=== PATIENT | female | born 1980 | race Caucasian/White ===

== ENCOUNTER 2022-07-21 16:39 | Outpatient (CLI) | payer MEDICAID | END 2022-07-21 23:59 | disposition left against medical advice (07) | LOC: EMS 16:39 | DX: S09.90XA Unspecified injury of head, initial encounter (principal); Y04.2XXA Assault by strike against or bumped into by another person, initial encounter; Y92.029 Unspecified place in mobile home as the place of occurrence of the external cause ==

== ENCOUNTER 2025-04-14 16:49 | Observation (INO) ==
[2025-04-14 17:22] LABS: HCT - HEMATOCRIT 35.7 % (37.0-47.0); HGB - HEMOGLOBIN 11.7 g/dL (12.0-16.0); MEAN PLATELET VOLUME 9.3 fL (7.9-10.8); PLT - PLATELET COUNT 263 10^3/uL (130-450); RED CELL DISTRIBUTION WIDTH 14.5 % (12.0-15.0)
[2025-04-14 17:27] LABS: ABNORMAL LYMPHS % (MANUAL) 0 %; BASOPHILS # (MANUAL) 0.0 10^3/uL (0-0.1)
--- NOTE | 2025-04-14 17:33 | ED Physician Documentation ---
PD HPI ABD PAIN Stated complaint Stated Complaint: ABD/BACK PX, CONFUSION Chief complaint Chief Complaint: Abd Pain Additional information Additional information: 44-year-old female with history of pyelonephritis renal calculi and meth dependence presents to the emergency department for right flank pain and UTI symptoms that started on Monday. Patient says with her history of pyelonephritis and kidney stones in the past this feels very similar to previous episodes. She has been having fevers and chills at home unsure how high her fever has been but she says very high. Mostly pain is to her right flank region with UTI symptoms such as dysuria, urinary urgency and frequency but now pain is radiating throughout her entire lower back. She endorses in nausea no vomiting. Meds/Allgy Home Medications Ambulatory Orders Medication Instructions Recorded Confirmed hydrocodone 5 mg-acetaminophen 325 1 - 2 ea PO Q6H PRN Pain #15 tabs 04/22/13 01/23/25 mg tablet Held on 01/23/25. Instructions: Therapy Completed prednisone 20 mg tablet 40 mg (2 x 20 mg) PO DAILY 5 days 04/22/13 01/23/25 Held on 01/23/25. Instructions: Therapy Completed ferrous sulfate 325 mg (65 mg 325 mg PO QDAY 01/23/25 01/28/25 iron) tablet lisinopril 10 mg tablet 10 mg PO QDAY #90 tabs 01/2301/28/25 Allergies Allergies Allergy/AdvReac Type Severity Reaction Status Date / Time aspirin Allergy Severe Anaphylaxis Verified 04/14/25 17:10 bee venom protein (honey bee) Allergy Severe Anaphylaxis Verified 04/14/25 17:10 morphine Allergy Severe Anaphylaxis Verified 04/14/25 17:10 Penicillins Allergy Severe Anaphylaxis Verified 04/14/25 17:10 Sulfa (Sulfonamide Allergy Severe Anaphylaxis Verified 04/14/25 17:10 Antibiotics) cinnamon Allergy Intermediate Hives Verified 04/14/25 17:10 mark Allergy Intermediate Hives Verified 04/14/25 17:10 strawberry Allergy Intermediate Hives Verified 04/14/25 17:10 Vinegar Allergy Intermediate Hives Verified 04/14/25 17:10 PFSH Active Problems All Active Problems (Updated 04/14/25 @ 19:54 by REE Iglesias) Methamphetamine use (Acute) Sepsis (Acute) Pyelonephritis (Acute) Essential hypertension (Acute) Cellulitis of left hand (Acute) Puncture wound of left hand (Acute) Medical History Medical History (Updated 04/14/25 @ 19:54 by REE Iglesias) No pertinent past medical history Social History Social History Smoking Status: Former smoker If you are a former smoker, when did you quit? (Date/Year): 2022 Do you feel safe in your home environment?: Yes History of physical, verbal, emotional, or financial abuse?: No Frequency: Occasional Exam Exam Vital Signs: Vital Signs x48h Pulse Resp BP Pulse Ox 04/14/25 18:51 98 23 133/86 H 96 04/14/25 17:06 110 H 18 171/115 H 97 Constitutional abnormal general appearance (disheveled), (chronically ill) and (lethargic), no apparent distress, average body habitus, no limitations and alert HENMT normocephalic and head/scalp atraumatic Eyes PERRL Chest inspection of chest normal Respiratory breath sounds equal bilaterally and normal respiratory effort Cardiovascular normal heart rate noted Gastrointestinal abdomen normal to inspection, abdomen soft to palpation, nontender to palpation, nondistended and no masses Genitourinary right CVA tenderness Extremities normal to inspection Skin skin color normal Results Vitals Vitals: Vital Signs - 24 hr 04/14/25 17:06 04/14/25 18:51 Temperature Source Temporal Artery Scan Pulse Rate 110 H 98 Respiratory Rate 18 23 Blood Pressure 171/115 H 133/86 H O2 Saturation 97 96 O2 Source Room air Pain Intensity 10 Oxygen O2 Source Room air Labs Labs: Laboratory Tests 04/14/25 04/14/25 04/14/25 17:16 17:16 17:38 WBC 24.3 H RBC 4.18 L Hgb 11.7 L Hct 35.7 L MCV 85.4 MCH 28.0 MCHC 32.8 RDW 14.5 Plt Count 263 MPV 9.3 Neut # (Auto) Not Reportable Lymph # (Auto) Not Reportable [place] # (Auto) Not Reportable Eos # (Auto) Not Reportable Baso # (Auto) Not Reportable Absolute Nucleated RBC Not Reportable Total Counted 100 Band Neuts % (Manual) 3 Abnorm Lymph % (Manual) 0 Metamyelocytes % 1 H Nucleated RBC % Not Reportable Neutrophils # (Manual) 20.9 H Lymphocytes # (Manual) 1.5 Monocytes # (Manual) 1.5 H Eosinophils # (Manual) 0.2 Basophils # (Manual) 0.0 Differential Comment MANUAL DIFFERENTIAL Platelet Estimate NORMAL (130-450,000) Platelet Morphology NORMAL APPEARANCE RBC Morph Micro Appear 1+ ANISOCYTOSIS 1+ POLYCHROMASIA VBG pH VBG pCO2 VBG pO2 VBG HCO3 VBG Total CO2 VBG O2 Saturation VBG Base Excess Sodium 131 L Potassium 3.5 Chloride 100 L Carbon Dioxide 24 Anion Gap 7.0 BUN 19 Creatinine 1.1 Estimated GFR (MDRD) 54 L Glucose 163 H Lactic Acid Calcium 8.6 Total Bilirubin 0.5 AST 14 ALT 17 Alkaline Phosphatase 101 Total Protein 7.1 Albumin 3.4 Globulin 3.7 Albumin/Globulin Ratio 0.9 L Lipase 39 Urine Color Dark yellow Urine Clarity Cloudy Urine pH 6.0 Ur Specific [place] 1.020 Urine Protein >=300 H Urine Glucose (UA) 500 H Urine Ketones Negative Urine Occult Blood Large Urine Nitrite Positive Urine Bilirubin Negative Urine Urobilinogen 2 H Ur Leukocyte Esterase Moderate Urine RBC 11-25 H Urine WBC 11-25 H Urine WBC Clumps PRESENT Ur Squamous Epith Cells RARE Squamous Urine Bacteria Many H Ur Microscopic Review INDICATED Urine Culture Comments INDICATED Urine HCG, Qual NEGATIVE Serum Ketones 04/14/25 04/14/25 18:02 18:39 WBC RBC Hgb Hct MCV MCH MCHC RDW Plt Count MPV Neut # (Auto) Lymph # (Auto) [place] # (Auto) Eos # (Auto) Baso # (Auto) Absolute Nucleated RBC Total Counted Band Neuts % (Manual) Abnorm Lymph % (Manual) Metamyelocytes % Nucleated RBC % Neutrophils # (Manual) Lymphocytes # (Manual) Monocytes # (Manual) Eosinophils # (Manual) Basophils # (Manual) Differential Comment Platelet Estimate Platelet Morphology RBC Morph Micro Appear VBG pH 7.443 H VBG pCO2 35.1 L VBG pO2 40.6 VBG HCO3 24.3 VBG Total CO2 25.3 VBG O2 Saturation 58.0 L VBG Base Excess 0.0 Sodium Potassium Chloride Carbon Dioxide Anion Gap BUN Creatinine Estimated GFR (MDRD) Glucose Lactic Acid 1.0 Calcium Total Bilirubin AST ALT Alkaline Phosphatase Total Protein Albumin Globulin Albumin/Globulin Ratio Lipase Urine Color Urine Clarity Urine pH Ur Specific [place] Urine Protein Urine Glucose (UA) Urine Ketones Urine Occult Blood Urine Nitrite Urine Bilirubin Urine Urobilinogen Ur Leukocyte Esterase Urine RBC Urine WBC Urine WBC Clumps Ur Squamous Epith Cells Urine Bacteria Ur Microscopic Review Urine Culture Comments Urine HCG, Qual Serum Ketones NEGATIVE Rads (name of study) CT abd pelvis: Relevant Findings:: Final report received and EMP independent interpretation of test Interpretation: IMPRESSION: Significant heterogeneity of the left kidney, with surrounding edematous fat stranding, likely pyelonephritis. Edema also seen around the left ureter and bladder. No drainable abscess. Consider future imaging surveillance to assess for resolution. Degenerative changes of the lumbar spine, worst at L5-S1. If there is high concern for further derangement, consider MRI evaluation. Possible 3.5 cm right ovarian cyst. This could be better assessed with pelvic ultrasound if needed. Other findings above. PD Medical Decision Making ED course ED course: 44-year-old female comes into the emergency department for right flank pain and UTI symptoms. Differentials include appendicitis, pyelonephritis, renal calculi, UTI. Labs are complete for further evaluation. WBC elevated at 24.3. CMP for the most part unremarkable aside from GFR being slightly suppressed at 54 normal lactic, urinalysis has quite a bit of glucose and over 500 positive for bacteria WBC leukocytes and nitrites. Negative serum ketones. CT abdomen pelvis with contrast shows that she has significant heterogeneity of the left kidney with surrounding edematous fat stranding most likely pyelonephritis. She also has swelling and edema around the left ureter and bladder without any drainable abscesses. Given these findings and how ill-appearing the patient looks I think that she benefit from IV antibiotics here in the hospital. Patient is agreeable to stay she does endorse and recent meth use about 3 to 4 days ago. No renal calculi on imaging. She says her blood cultures have been collected and urine sent to the lab for cultures initiated on Rocephin. Spoke with hospitalist, Serena Connor she is graciously agreed to admit the patient for further hospitalization. Discharge Plan Discharge Patient Disposition: [facility] DC/Xfer Condition: Good Clinical Impression: Pyelonephritis Interventions: ED Admission Assessment Last Done: 04/14/25 20:02 Vitals documented within 30 minutes of discharge?: Yes
[2025-04-14 17:41] LABS: ALT ALANINE AMINOTRANSFERASE 17.0 IU/L (10-60); AST ASPARTATE AMINOTRANSFERASE 14.0 IU/L (10-42); BUN - BLOOD UREA NITROGEN 19.0 mg/dL (6-20); CARBON DIOXIDE - CO2 24.0 mmol/L (21-32); CREATININE 1.1 mg/dL (0.6-1.3); GFR - MDRD 54.0 (>89)
--- OUTSIDE RECORDS SUMMARY | 2025-04-14 17:42 | EXTERNAL MEDICAL SUMMARY RPT | Continuity of Care Document ---
Author Organization [place] Address [address] [place] [id number] Phone Allergies and Intolerances date description facility reaction severity 2013-03-01 10:00 [id number]^P[place] ns^^Pen icillins^^[facility] unk (no severity) 2025-01-23 10:00 [id number]^Penicilli ns^^Pen icillins^^allergy.id [facility] Anaphylaxis (no severity) 2025-01-28 10:00 [id number]^Penicilli ns^^Pen icillins^^allergy.id [facility] Anaphylaxis (no severity) 2025-04-14 10:00 [id number]^Penicilli ns^^Pen icillins^^allergy.id [facility] Anaphylaxis (no severity) 2013-03-01 10:00 [id number]^Sulfa (Sulfonamide Antibiotics)^^Sulfa (Sulfonamide Antibiotics)^^allergy.id [facility] [place] Hives (no severity) 2025-01-23 10:00 [id number]^Sulfa (Sulfonamide Antibiotics)^^Sulfa (Sulfonamide Antibiotics)^^allergy.id [facility] Anaphylaxis (no severity) 2025-01-28 10:00 [id number]^Sulfa (Sulfonamide Antibiotics)^^Sulfa (Sulfonamide Antibiotics)^^allergy.[facility] Anaphylaxis (no severity) 2025-04-14 10:00 [id number]^Sulfa (Sulfonamide Antibiotics)^^Sulfa (Sulfonamide Antibiotics)^^allergy.id [facility] Anaphylaxis (no severity) 2025-01-23 10:00 [id number]^Vinegar^^ Vinegar ^^[email or web address] [place] Hives (no severity) 2025-01-28 10:00 [id number]^Vinegar^^ Vinegar ^^[facility] 2025-04-14 10:00 [id number]^Vinegar^^ Vinegar ^^allergy.id [facility] Hives (no severity) 2013-03-01 10:00 [id number]^morphine^ ^morphi ne^^[facility] swell (no severity) 2025-01-23 10:00 [id number]^morphine^ ^morphi ne^^allergy.id [facility] Anaphylaxis (no severity) 2025-01-28 10:00 [id number]^morphine^ ^morphi ne^^allergy.id [facility] Anaphylaxis (no severity) 2025-04-14 10:00 [id number]^morphine^ ^morphi ne^^allergy.id [facility] Anaphylaxis (no severity) 2013-03-01 10:00 [id number]^aspirin^^ aspirin ^^[email or web address] [place] Hives (no severity) 2025-01-23 10:00 [id number]^aspirin^^ aspirin ^^allergy.id [facility] Anaphylaxis (no severity) 2025-01-28 10:00 [id number]^aspirin^^ aspirin ^^allergy.id [facility] Anaphylaxis (no severity) 2025-04-14 10:00 [id number]^aspirin^^ aspirin ^^[facility]aphylaxis (no severity) 2025-01-23 10:00 [id number]^cinnamon^ ^cinnam on^^allergy.[email or web address] Hives (no severity) 2025-01-28 10:00 [id number]^cinnamon^ ^cinnam on^^[email or web address] Hives (no severity) 2025-04-14 10:00 [id number]^cinnamon^ ^cinnam on^^[email or web address] Hives (no severity) 2025-01-23 10:00 [id number]^bee venom protein (honey bee)^^bee venom protein (honey bee)^^allergy.[email or web address] Anaphylaxis (no severity) 2025-01-28 10:00 [id number]^bee venom protein (honey bee)^^bee venom protein (honey bee)^^allergy.id [facility] Anaphylaxis (no severity) 2025-04-14 10:00 [id number]^bee venom protein (honey bee)^^bee venom protein (honey bee)^^allergy.id [facility] Anaphylaxis (no severity) 2025-01-23 10:00 [id number]^strawberr y^^stra wberry^^allergy.id [facility] Hives (no severity) 2025-01-28 10:00 [id number]^strawberr y^^stra wberry^^allergy.id [facility] Hives (no severity) 2025-04-14 10:00 [id number]^strawberr y^^stra wberry^^allergy.id [facility] Hives (no severity) 2025-01-23 10:00 [id number]^mark^^ma perkins^^al lergy.id [facility] Hives (no severity) 2025-01-28 10:00 [id number]^mark^^ma perkins^^al lergy.id [facility] Hives (no severity) 2025-04-14 10:00 [id number]^mark^^ma perkins^^al lergy.id [facility] Hives (no severity) Problems date description facility 2025-01-23 15:08 Cellulitis of left upper limb [facility] 2025-01-23 15:08 Puncture wound witho ut foreign body of left hand, initial encounter [facility] 2025-01-23 15:23 Cellulitis of left upper limb [facility] 2025-01-23 15:23 Puncture wound witho ut foreign body of left hand, initial encounter [facility] 2025-01-24 00:03 Essential (primary) hypertensio n [facility] 2025-01-24 00:03 Cellulitis of left upper limb [facility] 2025-01-24 00:03 Puncture wound witho ut foreign body of left hand, initial encounter [facility] 2025-01-24 12:01 Essential (primary) hypertensio n [facility] 2025-01-24 12:01 Cellulitis of left upper limb [facility] 2025-01-24 12:01 Puncture wound witho ut foreign body of left hand, initial encounter [facility] Results/Labs test date facility value unit notes Result panel 1 HGB - HEMOGLOBIN 2025-04-14 17:16 Examify 11.7 g /dl (missing) RED CELL DISTRIBUTION WIDTH 2025-04-14 17:16 Examify 14.5 % (missing) WHITE BLOOD COUNT 2025-04-14 17:16 Examify 24.3 x10 3/ul (missing) PLT - PLATELET COUNT 2025-04-14 17:16 Examify 263 10 3/ul (missing) MEAN CORPUSCULAR HEMOGLOBIN 2025-04-14 17:16 Examify 28.0 pg (missing) MEAN CORPUSCULAR HGB CONC 2025-04-14 17:16 Examify 32 .8 g/dl (missing) HCT - HEMATOCRIT 2025-04-14 17:16 Examify 35.7 % (missing) RED BLOOD COUNT 2025-04-14 17:16 Examify 4.18 10 6/ul (missing) MEAN CORPUSCULAR VOLUME 2025-04-14 17:16 Examify 85.4 fl (missing) MEAN PLATELET VOLUME 2025-04-14 17:16 Examify 9.3 fl (missing) Social History date description facility
[2025-04-14 17:49] LABS: GLUCOSE, URINE (UA) 500 mg/dL (NEGATIVE); KETONES,URINE (UA) Negative (NEGATIVE); OCCULT BLOOD,URINE Large (NEGATIVE)
[2025-04-14 18:12] LABS: SQUAMOUS EPITHELIAL CELL,UR RARE Squamous (<= Few); WBC CLUMPS,URINE PRESENT
[2025-04-14 18:14] LABS: BAND NEUTROPHILS % (MANUAL) 3 %; EOSINOPHILS # (MANUAL) 0.2 10^3/uL (0-0.7); LYMPHOCYTES # (MANUAL) 1.5 10^3/uL (1.5-3.5); LYMPHOCYTES % (MANUAL) 6 %; METAMYELOCYTES % (MANUAL) 1 %; MONOCYTES # (MANUAL) 1.5 10^3/uL (0.0-1.0); NEUTROPHILS # (MANUAL) 20.9 10^3/uL (1.5-6.6)
[2025-04-14 18:14] LABS: VBG PCO2 35.1 mmHg (41-51); VBG PH 7.443 (7.31-7.41)
[2025-04-14 18:15] LABS: VBG BASE EXCESS 0.0 mmol/L (-2 - +2); VBG PO2 40.6 mmHg (25-47); VBG TOTAL CO2 25.3 mmol/L (24-29)
[2025-04-14 18:16] LABS: PLATELET ESTIMATE, MANUAL NORMAL (130-450,000) (NORMAL); PLATELET MORPHOLOGY NORMAL APPEARANCE (NORMAL)
[2025-04-14] MEDS: cefTRIAXone 1 GM in SODIUM CHLORIDE 0.9% MINIBAG 100 ML IV STA (18:41)
--- NOTE | 2025-04-14 18:42 | CT Report ---
PROCEDURE: CT Abdomen/Pelvis W INDICATIONS: right flank pain, back pain CONTRAST: [id number] 100ML TECHNIQUE: After the administration of intravenous contrast, a CT scan of the abdomen and pelvis was performed. Images were recorded and evaluated at appropriate window settings. Reformats: coronal and sagittal. For radiation dose reduction, the following was used: automated exposure control, adjustment of mA and/or kV according to patient size. COMPARISON: None. FINDINGS: Image quality: Diagnostic Lower chest: Unremarkable lung bases. Possible trace hiatal hernia. Mild cardiomegaly. Liver: Unremarkable Gallbladder and biliary system: Cholecystectomy clips. Nondilated biliary system Pancreas: No ductal dilation Spleen: Nonenlarged Adrenals: No discrete nodules Kidneys: No right hydronephrosis. No solid right renal mass. Significant heterogeneity is seen in the left kidney, with surrounding edematous fat stranding. Edema also seen surrounding the left ureter. Vessels and lymph nodes: Prominent left retroperitoneal lymph nodes, nonspecific, possibly reactive. Main portal vein is patent. No abdominal duct aneurysm. Bowel and peritoneum: No bowel obstruction. Moderate fecal loading in the distal colon and rectum. Colonic diverticula also seen. No drainable abscess or ascites. Body wall: Mild rectus diastases Pelvis: Under distended urinary bladder. Mild edematous fat stranding seen around the bladder. Possible 3.5 cm right ovarian cyst. Bones: No aggressive appearing osseous abnormality. Lumbar degenerative changes, with disc space height loss most significant at L5-S1. L5-S1 anterolisthesis also present. IMPRESSION: Significant heterogeneity of the left kidney, with surrounding edematous fat stranding, likely pyelonephritis. Edema also seen around the left ureter and bladder. No drainable abscess. Consider future imaging surveillance to assess for resolution. Degenerative changes of the lumbar spine, worst at L5-S1. If there is high concern for further derangement, consider MRI evaluation. Possible 3.5 cm right ovarian cyst. This could be better assessed with pelvic ultrasound if needed. Other findings above. Reviewed by: Gibran Winter MD on 04/14/2025 6:39 PM [facility] Approved by: Gibran Winter MD on 04/14/2025 6:39 PM PST Station ID: [id number]
[2025-04-14] MEDS: ONDANSETRON 4 MG/2 ML VIAL IVP STA (19:13)
[2025-04-14] MEDS: HYDROmorphone 0.5 MG/0.5 ML SYRINGE IVP STA (19:13)
--- NOTE | 2025-04-14 19:14 | HISTORY & PHYSICAL EXAMINATION ---
Chief Complaint Chief Complaint Chief Complaint: abdominal and flank pain History of Present Illness Admitted From Admitted From:: home History Obtained From Records Reviewed: [facility] notes History obtained from: patient, sister at bedside History of Present Illness HPI Comment/Other: 44-year-old female with past medical history of hypertension and methamphetamine use presents to the emergency department today with back pain and fever. She started to have some dysuria 3 days ago but did not seek treatment. She has a history of pyelonephritis and kidney stones in the past. Her symptoms of dysuria are urinary urgency and frequency. The pain is now radiating throughout her back and abdomen. She has nausea without vomiting. She has decreased appetite. Her bowels have been moving normally and she has been able to pass gas. 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 Last methamphetamine use was 4 days ago. She does not use drugs IV just smokes it. She lives at home with her children. She has family members looking after her children while she is here in the hospital. Meds/Allgy Home Medications Ambulatory Orders Medication Instructions Recorded Confirmed hydrocodone 5 mg-acetaminophen 325 1 - 2 ea PO Q6H PRN Pain #15 tabs 04/22/13 01/23/25 mg tablet Held on 01/23/25. Instructions: Therapy Completed prednisone 20 mg tablet 40 mg (2 x 20 mg) PO DAILY 5 days 04/22/13 01/23/25 Held on 01/23/25. Instructions: Therapy Completed ferrous sulfate 325 mg (65 mg 325 mg PO QDAY 01/23/25 01/28/25 iron) tablet lisinopril 10 mg tablet 10 mg PO QDAY #90 tabs 01/2301/28/25 Allergies Allergies Allergy/AdvReac Type Severity Reaction Status Date / Time aspirin Allergy Severe Anaphylaxis Verified 04/14/25 17:10 bee venom protein (honey bee) Allergy Severe Anaphylaxis Verified 04/14/25 17:10 morphine Allergy Severe Anaphylaxis Verified 04/14/25 17:10 Penicillins Allergy Severe Anaphylaxis Verified 04/14/25 17:10 Sulfa (Sulfonamide Allergy Severe Anaphylaxis Verified 04/14/25 17:10 Antibiotics) cinnamon Allergy Intermediate Hives Verified 04/14/25 17:10 mark Allergy Intermediate Hives Verified 04/14/25 17:10 strawberry Allergy Intermediate Hives Verified 04/14/25 17:10 Vinegar Allergy Intermediate Hives Verified 04/14/25 17:10 PFSH Active Problems All Active Problems (Updated 04/14/25 @ 19:54 by REE Iglesias) Methamphetamine use (Acute) Sepsis (Acute) Pyelonephritis (Acute) Essential hypertension (Acute) Cellulitis of left hand (Acute) Puncture wound of left hand (Acute) Medical History Medical History (Updated 04/14/25 @ 19:54 by REE Iglesias) No pertinent past medical history Social History Social History Smoking Status: Former smoker If you are a former smoker, when did you quit? (Date/Year): 2022 Do you feel safe in your home environment?: Yes History of physical, verbal, emotional, or financial abuse?: No Frequency: Occasional POLST Patient has POLST: No Review of Systems Status of ROS: 10 or more systems reviewed and unremarkable except as noted in history and below Prior Level of Functionality: Independent adult. She does not drive. Exam Exam Vital Signs: Vital Signs x48h Pulse Resp BP Pulse Ox 04/14/25 18:51 98 23 133/86 H 96 04/14/25 17:06 110 H 18 171/115 H 97 Constitutional Appears ill, poorly groomed. HENMT normocephalic and external ears normal Eyes conjunctivae normal Neck/C-Spine visual inspection normal Lymph no lymphadenopathy noted Chest inspection of chest normal Respiratory breath sounds equal bilaterally and normal respiratory effort Cardiovascular Mildly tachycardic, regular rhythm. Gastrointestinal Mild diffuse tenderness.Left CVA tenderness Genitourinary no CVA tenderness (Left) Extremities normal to inspection and normal to palpation Neurology harvest contractor II-XII intact, no movement abnormality noted, no focal motor deficit noted, speech normal and GCS 15 Psychiatry mental status grossly normal, oriented x3, thought process normal and cooperative Skin skin color normal Conclusion/Plan Problem List (1) Sepsis: Plan: Patient presents with 3 d hx dysuria, subjective fevers at home, lethargy. Tachycardia on admit with WBC 24.3. Has not run a fever in the ED. She has been given sepsis dose fluids in the ED. UA is positive. The source of her sepsis is most reasonably her pyelonephritis. Discussed with EWA Barahona in the ED and patient will be admitted to OBS status for IV abx, supportive fluid and will follow her cultures. none of these treatments can be provided outside the bounds of admission. I expect her length of stay to be less than 2 midnights. (2) Pyelonephritis: Plan: Blood, nitrite, moderate leukocyte esterase 11-25 RBCs and WBCs per high-powered field. Bacteria as well. Urine culture is pending at this time. Blood cultures are pending at this time. Imaging is a contrasted CT of the abdomen pelvis which is significant for mild edematous fat stranding around the bladder, heterogenicity of the left kidney with surrounding edematous fat stranding. No abscesses seen, no renal stones are seen. There is also a 3.5 cm right ovarian cyst which is an incidental finding at this point.I will send a test to make sure she does not have an undetected . I am treating her pain with IV narcotics. I have also ordered IV Tylenol. She may have a regular diet but will also receive LR at 125 cc an hour overnight. I am treating her nausea with Zofran, and Compazine as a second line agent. (3) Essential hypertension: Plan: She has a hx of HTN. She tells me that she is supposed to take lisinopril daily, but does not. She is receptive to the idea of getting primary care. (4) Methamphetamine use: Plan: according to patient last used 4 days ago. Will discuss with social work for substance abuse resources. I have spent 78 minutes in the care of this patient today. This includes time [id number], review and ordering of diagnostic imaging and laboratory studies and consultation with other providers. Monitoring the patient's signs symptoms, evaluation of medication effectiveness and patient's response to treatment. Lab Results Lab results reviewed: Yes 04/14/25 17:16 04/14/25 17:16
[2025-04-14] MEDS ORDERED: HYDROmorphone 0.5 MG/0.5 ML SYRINGE IVP PRN (19:43)
[2025-04-14] MEDS ORDERED: PROCHLORPERAZINE 10 MG/2 ML VIAL IVP PRN (19:43)
[2025-04-14] MEDS ORDERED: ONDANSETRON 4 MG/2 ML VIAL IVP PRN (19:43)
[2025-04-14] MEDS ORDERED: SODIUM CHLORIDE FLUSH 0.9% 10 ML SYRINGE IVP PRN (19:43)
[2025-04-14] MEDS: LACTATED RINGERS 1,000 ML IV SCH (20:21)
[2025-04-14 20:27] LABS: HCG UR QUAL NEGATIVE
[2025-04-14] MEDS: SODIUM CHLORIDE FLUSH 0.9% 10 ML SYRINGE IVP SCH (23:44)
[2025-04-15] MEDS: ACETAMINOPHEN 325 MG TABLET PO PRN (03:27)
[2025-04-15 05:07] LABS: HCT - HEMATOCRIT 31.9 % (37.0-47.0); HGB - HEMOGLOBIN 10.1 g/dL (12.0-16.0); MEAN PLATELET VOLUME 9.9 fL (7.9-10.8); PLT - PLATELET COUNT 260 10^3/uL (130-450); RED CELL DISTRIBUTION WIDTH 14.4 % (12.0-15.0)
[2025-04-15 05:15] LABS: ABNORMAL LYMPHS % (MANUAL) 0 %; BASOPHILS # (MANUAL) 0.0 10^3/uL (0-0.1); EOSINOPHILS # (MANUAL) 0.0 10^3/uL (0-0.7)
[2025-04-15 05:31] LABS: BUN - BLOOD UREA NITROGEN 15.0 mg/dL (6-20); CARBON DIOXIDE - CO2 22.0 mmol/L (21-32); CREATININE 0.9 mg/dL (0.6-1.3); GFR - MDRD 69.0 (>89)
[2025-04-15 06:06] LABS: BAND NEUTROPHILS % (MANUAL) 3 %; LYMPHOCYTES # (MANUAL) 2.6 10^3/uL (1.5-3.5); LYMPHOCYTES % (MANUAL) 12 %; MONOCYTES # (MANUAL) 2.3 10^3/uL (0.0-1.0); NEUTROPHILS # (MANUAL) 16.4 10^3/uL (1.5-6.6); PLATELET ESTIMATE, MANUAL NORMAL (130-450,000) (NORMAL); PLATELET MORPHOLOGY NORMAL APPEARANCE (NORMAL); RBC MORPHOLOGY (MULTIPLE) NORMAL APPEARANCE (NORMAL); WBC MORPHOLOGY (MULTIPLE) NORMAL APPEARANCE (NORMAL)
[2025-04-15] MEDS: ENOXAPARIN 40 MG/0.4 ML SYRINGE SUBQ SCH (08:39)
--- NOTE | 2025-04-15 12:06 | PROVIDER PROGRESS NOTE ---
Subjective Prog Note Date Prog Note Date: 04/15/25 Subjective Subjective: She feels so much better than at admission. She has been able to eat and walk to the bathroom. she is still hooked up to the IV pole, so not getting up alone. Discussed her meth use, and her living situtation. She tells me last meth use was on 04/10. She uses it every few weeks, it helps her to not be so tired. She is currently living in a travel trailer with her kids. has to use a kadeem potty. Does have plenty of water, that is not potable. They are waiting to get into an apartment, and that should be ready in the very near future, sometime between today and May 26. They cook either on the propane grill or the microwave. they have an indoor propane stove, but she does not like to use it because it does not feel safe. 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 She is a single mother, but has family here on [place] that help out. She did not seek care because she kept thinking things would get better, but instead they got worse. her eldest child was going to call 911, but called some family instead who brought her to the ED. She has not followed with primary care because she says it is hard to make the appointments and she does not like to miss work for her appointments. She works 7-3. I have encouraged her to get late afternoon appointments. Current Medications Current Medications Current Medications: Current Medications Generic Name Dose Route Start Last Admin Trade Name Freq PRN Reason Stop Dose Admin Acetaminophen 650 mg 04/14/25 19:43 04/15/25 03:27 Acetaminophen 325 Mg Tablet PO 650 mg Q4HR PRN Administration Pain 1 to 4, or Fever Ceftriaxone Sodium 2 gm 04/15/25 09:00 04/15/25 08:40 Ceftriaxone 2 Gm Vial IVP 2 gm DAILY SENDY Administration Enoxaparin Sodium 40 mg 04/15/25 09:00 04/15/25 08:39 Enoxaparin 40 Mg/0.4 Ml Syringe SUBQ 40 mg DAILY SENDY Administration Hydromorphone HCl 0.5 mg 04/14/25 19:43 Hydromorphone 0.5 Mg/0.5 Ml Syringe IVP Q2H PRN Pain 8 to 10 Lactated Ringer's 1,000 mls @ 125 mls/hr 04/14/25 20:00 04/15/25 11:56 Lr IV 04/15/25 19:59 125 mls/hr .Q8H SENDY Infusion Ondansetron HCl 4 mg 04/14/25 19:43 Ondansetron 4 Mg/2 Ml Vial IVP Q6HR PRN Nausea / Vomiting Prochlorperazine Edisylate 10 mg 04/14/25 19:43 Prochlorperazine 10 Mg/2 Ml Vial IVP Q6HR PRN Nausea / Vomiting Sodium Chloride 10 ml 04/14/25 19:43 Sodium Chloride Flush 0.9% 10 Ml Syringe IVP PRN PRN NEEDED PER PROVIDER ORDERS Sodium Chloride 10 ml 04/15/25 01:00 04/15/25 08:40 Sodium Chloride Flush 0.9% 10 Ml Syringe IVP 10 ml 0100,0900,1700 SENDY Administration Objective Vital Signs/Intake & Output Reviewed Vital Signs: Yes Vital Signs: Vital Signs x48h Temp Pulse Resp BP Pulse Ox 04/15/25 11:45 36.6 C 92 18 184/111 H 97 04/15/25 08:15 36.8 C 84 18 160/105 H 100 Intake & Output: Intake & Output 04/12/25 04/13/25 04/14/25 04/15/25 23:59 23:59 23:59 23:59 Intake Total 3645 / 3645 2230 / 2230 Balance 3645 / 3645 2230 / 2230 Weight (kg) 94.5 kg Objective General Appearance: positive No acute distress and Alert Eyes Bilateral: positive PERRL and Conjunctivae nml ENT: positive ENT inspection nml Neck: positive Nml inspection Respiratory: positive No respiratory distress and Breath sounds nml Cardiovascular: positive Regular rate & rhythm Abdomen: positive Non-tender and Other (left CVA tenderness) Back: positive CVA tenderness (L) Skin: positive Color nml Extremities: positive No pedal edema Neurologic/Psychiatric: positive Oriented x3 Lab Results 04/15/25 04:10 04/15/25 04:10 Other Labs: Lab Results x24hrs 04/15/25 04/14/25 04/14/25 Range/Units 04:10 18:39 18:02 WBC 21.3 H (4.8-10.8) x10^3/uL RBC 3.66 L (4.20-5.40) 10^6/uL Hgb 10.1 L (12.0-16.0) g/dL Hct 31.9 L (37.0-47.0) % MCV 87.2 (81.0-99.0) fL MCH 27.6 (27.0-31.0) pg MCHC 31.7 L (32.0-36.0) g/dL RDW 14.4 (12.0-15.0) % Plt Count 260 (130-450) 10^3/uL MPV 9.9 (7.9-10.8) fL Neut # (Auto) Not Reportable Lymph # (Auto) Not Reportable Otero # (Auto) Not Reportable Eos # (Auto) Not Reportable Baso # (Auto) Not Reportable Absolute Nucleated RBC Not Reportable Total Counted 100 Band Neuts % (Manual) 3 (0 - 10) % Abnorm Lymph % (Manual) 0 % Metamyelocytes % ( - 0) % Nucleated RBC % Not Reportable Neutrophils # (Manual) 16.4 H (1.5-6.6) 10^3/uL Lymphocytes # (Manual) 2.6 (1.5-3.5) 10^3/uL Monocytes # (Manual) 2.3 H (0.0-1.0) 10^3/uL Eosinophils # (Manual) 0.0 (0-0.7) 10^3/uL Basophils # (Manual) 0.0 (0-0.1) 10^3/uL Differential Comment MANUAL DIFFERENTIAL WBC Morphology NORMAL APPEARANCE (NORMAL) Platelet Estimate NORMAL (130-450,000) (NORMAL) Platelet Morphology NORMAL APPEARANCE (NORMAL) RBC Morph Micro Appear NORMAL APPEARANCE (NORMAL) VBG pH 7.443 H (7.31-7.41) VBG pCO2 35.1 L (41-51) mmHg VBG pO2 40.6 (25-47) mmHg VBG HCO3 24.3 (23-28) mmol/L VBG Total CO2 25.3 (24-29) mmol/L VBG O2 Saturation 58.0 L (60-80) % VBG Base Excess 0.0 (-2 - +2) mmol/L Sodium 132 L (135-145) mmol/L Potassium 3.5 (3.5-4.5) mmol/L Chloride 104 (101-111) mmol/L Carbon Dioxide 22 (21-32) mmol/L Anion Gap 6.0 (6-13) BUN 15 (6-20) mg/dL Creatinine 0.9 (0.6-1.3) mg/dL Estimated GFR (MDRD) 69 L (>89) Glucose 120 H (74-104) mg/dL Lactic Acid 1.0 (0.5-2.2) mmol/L Calcium 8.0 L (8.5-10.3) mg/dL Total Bilirubin (0.2-1.0) mg/dL AST (10-42) IU/L ALT (10-60) IU/L Alkaline Phosphatase (42-121) IU/L Total Protein (6.4-8.9) g/dL Albumin (3.2-5.5) g/dL Globulin (2.1-4.2) g/dL Albumin/Globulin Ratio (1.0-2.2) Lipase (11-82) U/L Urine Color Urine Clarity (CLEAR) Urine pH (5.0-7.5) PH Ur Specific Wolcott (1.002-1.030) Urine Protein (NEGATIVE) mg/dL Urine Glucose (UA) (NEGATIVE) mg/dL Urine Ketones (NEGATIVE) mg/dL Urine Occult Blood (NEGATIVE) Urine Nitrite (NEGATIVE) Urine Bilirubin (NEGATIVE) Urine Urobilinogen (NORMAL) E.U./dL Ur Leukocyte Esterase (NEGATIVE) Urine RBC (0-5) /HPF Urine WBC (0-5) /HPF Urine WBC Clumps Ur Squamous Epith Cells (<= Few) Urine Bacteria (None Seen) /HPF Ur Microscopic Review Urine Culture Comments Urine HCG, Qual Serum Ketones NEGATIVE (NEGATIVE) 04/14/25 04/14/25 04/14/25 Range/Units 17:38 17:16 17:16 WBC 24.3 H (4.8-10.8) x10^3/uL RBC 4.18 L (4.20-5.40) 10^6/uL Hgb 11.7 L (12.0-16.0) g/dL Hct 35.7 L (37.0-47.0) % MCV 85.4 (81.0-99.0) fL MCH 28.0 (27.0-31.0) pg MCHC 32.8 (32.0-36.0) g/dL RDW 14.5 (12.0-15.0) % Plt Count 263 (130-450) 10^3/uL MPV 9.3 (7.9-10.8) fL Neut # (Auto) Not Reportable Lymph # (Auto) Not Reportable Otero # (Auto) Not Reportable Eos # (Auto) Not Reportable Baso # (Auto) Not Reportable Absolute Nucleated RBC Not Reportable Total Counted 100 Band Neuts % (Manual) 3 (0 - 10) % Abnorm Lymph % (Manual) 0 % Metamyelocytes % 1 H ( - 0) % Nucleated RBC % Not Reportable Neutrophils # (Manual) 20.9 H (1.5-6.6) 10^3/uL Lymphocytes # (Manual) 1.5 (1.5-3.5) 10^3/uL Monocytes # (Manual) 1.5 H (0.0-1.0) 10^3/uL Eosinophils # (Manual) 0.2 (0-0.7) 10^3/uL Basophils # (Manual) 0.0 (0-0.1) 10^3/uL Differential Comment MANUAL DIFFERENTIAL WBC Morphology (NORMAL) Platelet Estimate NORMAL (130-450,000) (NORMAL) Platelet Morphology NORMAL APPEARANCE (NORMAL) RBC Morph Micro Appear 1+ POLYCHROMASIA 1+ ANISOCYTOSIS (NORMAL) VBG pH (7.31-7.41) VBG pCO2 (41-51) mmHg VBG pO2 (25-47) mmHg VBG HCO3 (23-28) mmol/L VBG Total CO2 (24-29) mmol/L VBG O2 Saturation (60-80) % VBG Base Excess (-2 - +2) mmol/L Sodium 131 L (135-145) mmol/L Potassium 3.5 (3.5-4.5) mmol/L Chloride 100 L (101-111) mmol/L Carbon Dioxide 24 (21-32) mmol/L Anion Gap 7.0 (6-13) BUN 19 (6-20) mg/dL Creatinine 1.1 (0.6-1.3) mg/dL Estimated GFR (MDRD) 54 L (>89) Glucose 163 H (74-104) mg/dL Lactic Acid (0.5-2.2) mmol/L Calcium 8.6 (8.5-10.3) mg/dL Total Bilirubin 0.5 (0.2-1.0) mg/dL AST 14 (10-42) IU/L ALT 17 (10-60) IU/L Alkaline Phosphatase 101 (42-121) IU/L Total Protein 7.1 (6.4-8.9) g/dL Albumin 3.4 (3.2-5.5) g/dL Globulin 3.7 (2.1-4.2) g/dL Albumin/Globulin Ratio 0.9 L (1.0-2.2) Lipase 39 (11-82) U/L Urine Color Dark yellow Urine Clarity Cloudy (CLEAR) Urine pH 6.0 (5.0-7.5) PH Ur Specific Wol[place] 1.020 (1.002-1.030) Urine Protein >=300 H (NEGATIVE) mg/dL Urine Glucose (UA) 500 H (NEGATIVE) mg/dL Urine Ketones Negative (NEGATIVE) mg/dL Urine Occult Blood Large (NEGATIVE) Urine Nitrite Positive (NEGATIVE) Urine Bilirubin Negative (NEGATIVE) Urine Urobilinogen 2 H (NORMAL) E.U./dL Ur Leukocyte Esterase Moderate (NEGATIVE) Urine RBC 11-25 H (0-5) /HPF Urine WBC 11-25 H (0-5) /HPF Urine WBC Clumps PRESENT Ur Squamous Epith Cells RARE Squamous (<= Few) Urine Bacteria Many H (None Seen) /HPF Ur Microscopic Review INDICATED Urine Culture Comments INDICATED Urine HCG, Qual NEGATIVE Serum Ketones (NEGATIVE) ABX Reporting Has patient been on IV antibiotics over the past 48 hours?: Yes Sepsis Event Note (H) Evaluation Current Stage of Sepsis: Sepsis Possible source of Sepsis: positive Genitourinary Sepsis Criteria Sepsis Criteria: WBC count greater than 12,000 or less than 4000 Assessment/Plan Problem List (1) Sepsis: Impression: Patient presents with 3 d hx dysuria, subjective fevers at home, lethargy. Tachycardia on admit with WBC 24.3. Has not run a fever in the ED or since admission. She has been given sepsis dose fluids in the ED. UA is positive. The source of her sepsis is most reasonably her pyelonephritis. She is still very fatigued but is improving. I am stopping supportive fluids. She needs to stay in the hospital until cultures speciate and we have 2 days of no growth on blood cultures. She expresses regret at not seeking care for her dysuria and now understands the need to seek care when she starts to feel like she has worsening dysuria. (2) Pyelonephritis: Impression: Blood, nitrite, moderate leukocyte esterase 11-25 RBCs and WBCs per high-powered field. Bacteria as well. Urine culture is pending at this time. Blood cultures are pending at this time. Imaging is a contrasted CT of the abdomen pelvis which is significant for mild edematous fat stranding around the bladder, heterogenicity of the left kidney with surrounding edematous fat stranding. No abscesses seen, no renal stones are seen. There is also a 3.5 cm right ovarian cyst which is an incidental finding at this point.I will send a test to make sure she does not have an undetected . For pain, she has been managed with tylenol and for nausea, she has needed nothing. (3) Essential hypertension: Impression: She has a hx of HTN. She tells me that she is supposed to take lisinopril daily, but does not. She is receptive to the idea of getting primary care. I am starting her back on lisinopril 10mg daily and have spoken to her about the importance of primary care. (4) Methamphetamine use: Impression: Episodic use. She has spoken with social work. I have instructed her that it makes her hypertension worse.
--- NOTE | 2025-04-15 13:58 | PHARMACY PROGRESS NOTE ---
Best Possible Medication History Admit Date and Time: 04/14/25 1856 Home Medications Medication Instructions Recorded Confirmed Type lisinopril 10 mg tablet 10 mg PO DAILY 04/15/2503/31 History Processed by: Pharmacy Medications reviewed in ED?: Yes Medication History completed: Yes Patient Interview: Completed Secondary Source(s): Insurance records [facility] Statement: As the person ultimately responsible for medication therapy, providers are able to order a medication from an existing home medication list in [facility] via the "Reconcile Routine" prior to Confirmation of that medication by application support intern. Such practice is discouraged except when the physician, in their clinical judgment, deems that a medical need exists for a medication without regard to previous use.
[2025-04-16 00:09] VITALS: O2SAT 93
[2025-04-16] MEDS: LABETALOL 20 MG/4 ML SYRINGE IVP ONE (01:22)
[2025-04-16 06:21] LABS: HCT - HEMATOCRIT 33.4 % (37.0-47.0); HGB - HEMOGLOBIN 10.5 g/dL (12.0-16.0); MEAN PLATELET VOLUME 9.8 fL (7.9-10.8); PLT - PLATELET COUNT 291 10^3/uL (130-450); RED CELL DISTRIBUTION WIDTH 14.7 % (12.0-15.0)
[2025-04-16 06:31] LABS: ABNORMAL LYMPHS % (MANUAL) 0 %; BASOPHILS # (MANUAL) 0.0 10^3/uL (0-0.1)
[2025-04-16 06:33] LABS: BUN - BLOOD UREA NITROGEN 14.0 mg/dL (6-20); CARBON DIOXIDE - CO2 24.0 mmol/L (21-32); CREATININE 0.8 mg/dL (0.6-1.3); GFR - MDRD 79.0 (>89)
[2025-04-16 06:52] LABS: BAND NEUTROPHILS % (MANUAL) 3 %; EOSINOPHILS # (MANUAL) 0.3 10^3/uL (0-0.7); LYMPHOCYTES # (MANUAL) 1.3 10^3/uL (1.5-3.5); LYMPHOCYTES % (MANUAL) 10 %; MONOCYTES # (MANUAL) 2.7 10^3/uL (0.0-1.0); NEUTROPHILS # (MANUAL) 9.1 10^3/uL (1.5-6.6); PLATELET ESTIMATE, MANUAL NORMAL (130-450,000) (NORMAL); PLATELET MORPHOLOGY NORMAL APPEARANCE (NORMAL); RBC MORPHOLOGY (MULTIPLE) NORMAL APPEARANCE (NORMAL); WBC MORPHOLOGY (MULTIPLE) NORMAL APPEARANCE (NORMAL)
--- NOTE | 2025-04-16 10:22 | Discharge Summary ---
Discharge Summary Admit Date: 04/14/25 Discharge Date: 04/16/25 Discharging Provider: Evelio Bond Primary Care Provider: Marguerite PCP Code Status: Attempt Resuscitation DIAGNOSES Discharge Diagnoses with Status of Each Condition: Sepsisblood cultures no growth to date, secondary to UTI Pyelonephritisdischarging on Levaquin Hypertensionincreased home dose of lisinopril to 20 mg daily Methamphetamine abuseshe reports this is occasional, I strongly discouraged this HPI History of Present Illness: 44-year-old female with past medical history of hypertension and methamphetamine use presents to the emergency department today with back pain and fever. She started to have some dysuria 3 days ago but did not seek treatment. She has a history of pyelonephritis and kidney stones in the past. Her symptoms of dysuria are urinary urgency and frequency. The pain is now radiating throughout her back and abdomen. She has nausea without vomiting. She has decreased appetite. Her bowels have been moving normally and she has been able to pass gas. HOSPITAL COURSE Hospital Course: Patient was admitted in the hospital and started on IV antibiotics. Her leukocytosis has greatly improved, and she has been afebrile for a day. Blood cultures are no growth to date, urine is growing E. coli. She is being discharged home on Levaquin and have increased her dose of lisinopril. She has been encouraged to follow-up with PCP ALLERGIES Allergies Allergy/AdvReac Type Severity Reaction Status Date / Time aspirin Allergy Severe Anaphylaxis Verified 04/14/25 17:10 bee venom protein (honey bee) Allergy Severe Anaphylaxis Verified 04/14/25 17:10 morphine Allergy Severe Anaphylaxis Verified 04/14/25 17:10 Penicillins Allergy Severe Anaphylaxis Verified 04/14/25 17:10 Sulfa (Sulfonamide Allergy Severe Anaphylaxis Verified 04/14/25 17:10 Antibiotics) cinnamon Allergy Intermediate Hives Verified 04/14/25 17:10 mark Allergy Intermediate Hives Verified 04/14/25 17:10 strawberry Allergy Intermediate Hives Verified 04/14/25 17:10 Vinegar Allergy Intermediate Hives Verified 04/14/25 17:10 MEDICATIONS Ambulatory Orders Medication Instructions Recorded Confirmed levofloxacin 750 mg tablet 750 mg PO DAILY 5 days #5 t abs 04/16/25 lisinopril 10 mg tablet 20 mg (2 x 10 mg) PO DAILY 3 0 days 04/16/25 #60 tabs PHYSICAL EXAM AT DISCHARGE Vital Signs: Vital Signs x48h Temp Pulse Resp BP 04/16/25 12:50 97.9 F 86 18 177/101 H 04/16/25 12:00 97.9 F 88 20 174/104 H 04/16/25 08:00 98.1 F 76 20 170/114 H Physical Exam Other/Comments: General Appearance: positive No acute distress and Alert Eyes Bilateral: positive PERRL and Conjunctivae nml ENT: positive ENT inspection nml Neck: positive Nml inspection Respiratory: positive No respiratory distress and Breath sounds nml Cardiovascular: positive Regular rate & rhythm Abdomen: positive Non-tender and Other (left CVA tenderness) Back: positive CVA tenderness (L) Skin: positive Color nml Extremities: positive No pedal edema Neurologic/Psychiatric: positive Oriented x3 LABS 04/16/25 05:48 04/16/25 05:48 SEPSIS Current Stage of Sepsis: Sepsis Possible source of Sepsis: Genitourinary Sepsis Criteria: WBC count greater than 12,000 or less than 4000 FOLLOW UP Follow Up: She needs to establish herself with PCP TIME SPENT Time Spent in Discharge (Minutes): 39 Discharge Plan Discharge Patient Disposition: Home, Self Care Condition: Good Prescriptions: New levofloxacin 750 mg Tablet 750 mg PO DAILY 5 Days Qty: 5 0RF lisinopril 10 mg tablet 20 mg PO DAILY 30 Days Qty: 60 0RF Discontinued lisinopril 10 mg tablet 10 mg PO DAILY Diet: Regular Interventions: Belongings Inventory Last Done: 04/16/25 10:00 Discharge Last Done: 04/16/25 11:15 Discharge Checklist - Nursing Last Done: 04/16/25 11:16 Discharge Vital Signs (30 Minutes) Last Done: 04/16/25 12:50 Health Concerns: You came into the hospital with a very severe condition called sepsis which I believe is due to a urinary tract infection. You completed a few days of IV antibiotics, and your blood cultures are no growth to date. You have a bacteria called E. coli in your urine. I am starting you on a medication called levofloxacin. I would like for you to take this as directed until the bottle is empty. I also sent in another month supply of your blood pressure medication lisinopril. Would like for you to follow-up with your PCP Print Language: Monegasque Patient Instructions: Sepsis Stand Alone Forms: PCP List, SBIRT Vitals documented within 30 minutes of discharge?: Yes (See DC VSs)
[2025-04-16 12:37] VITALS: TEMP 97.9
[2025-04-16 13:13] VITALS: BP 177/101
== END 2025-04-16 13:00 | disposition home or self-care (01) ==
LOC: MS2 16:49 → ED 16:49 → MS2 20:03
PROVIDERS: ADMIT Physician Assistant Medical; ATTEND Physician Assistant Medical